=== PATIENT | male | born 1970 | race African-American/Black ===

== ENCOUNTER 2016-11-27 14:58 | Inpatient (IN) | payer OTHER ==
[2016-11-27 16:50] VITALS: BMI 21.6
--- NOTE | 2016-11-27 17:43 | HP ---
CIWA Score - CIWA Score Nausea/Vomitin Muscle Tremors: 3 Anxiety: 2 Agitation: 1-Slight > Activity Paroxysmal Sweats: 3 Orientation: 0-Oriented Tacttile Disturbances: 0-None Auditory Disturbances: 0-None Visual Disturbances: 0-None Headache: 3-Moderate CIWA-Ar Total Score: 17 Admission ROS BHS - HPI Chief Complaint: "I am here to better my life." Pt. is here to Detox from Alcohol. Allergies/Adverse Reactions: Allergies Allergy/AdvReac Type Severity Reaction Status Date / Time No Known Allergies Allergy Verified 11/27/16 16:53 History of Present Illness: Pt. is a 45 YO male here to Detox from Alcohol. This is pt.'s first Detox admission at [facility]. Pt. had 1 previous Detox admission at [facility] in 2016. Exam Limitations: No Limitations - Ebola screening Have you traveled outside of the country in the last 21 days: No Have you had contact with anyone from an Ebola affected area: No Have you been sick,other than usual withdrawal symptoms: No Do you have a fever: No - Review of Systems Constitutional: Chills, Diaphoresis, Fever, Loss of Appetite, Malaise, Night Sweats, Changes in sleep, Unintentional Wgt. Loss (Lost 10 - 15 lbs. over the last 6 months.) EENT: reports: No Symptoms Reported Respiratory: reports: No Symptoms reported Cardiac: reports: Syncope (X 1: approx. 2 weeks ago. Did not go to ER.) GI: reports: Diarrhea, Nausea, Poor Appetite, Vomiting, Indigestion, Abdominal cramping : reports: No Symptoms Reported Musculoskeletal: reports: No Symptoms Reported Integumentary: reports: No Symptoms Reported Neuro: reports: Headache, Tremors Endocrine: reports: No Symptoms Reported Hematology: reports: Anemia (In past. No treatment.) Psychiatric: reports: Judgement Intact, Mood/Affect Appropiate, Orientated x3, Anxious, Depressed (Counseling treatment. No medication. Patient declines Psych Evaluation for this admission.) Other Systems: Reviewed and Negative Patient History - Patient Medical History Hx Anemia: Yes (No treatment.) Hx Asthma: No Hx Chronic Obstructive Pulmonary Disease (COPD): No Hx Cancer: No Hx Cardiac Disorders: No Hx Congestive Heart Failure: No Hx Hypertension: No Hx Hypercholesterolemia: Yes (No previous treatment.) Hx Pacemaker: No HX Cerebrovascular Accident: No Hx Seizures: No Hx Dementia: No Hx Diabetes: No Hx Gastrointestinal Disorders: No Hx Liver Disease: No Hx Genitourinary Disorders: No Hx Sexually Transmitted Disorders: No Hx Renal Disease (ESRD): No Hx Thyroid Disease: No Hx Human Immunodeficiency Virus (HIV): No (Last tested: 08/2016: NEGATIVE.) Hx Hepatitis C: No (Never Tested.) Hx Depression: Yes (No Treatment.) Hx Suicide Attempt: No (PATIENT DENIES CURRENT SI / HI.) Hx Bipolar Disorder: No Hx Schizophrenia: No Other Medical History: DENIES. - Patient Surgical History Past Surgical History: No Hx Neurologic Surgery: No Hx Cataract Extraction: No Hx Cardiac Surgery: No Hx Lung Surgery: No Hx Breast Surgery: No Hx Breast Biopsy: No Hx Abdominal Surgery: Yes (Surgical repair of Hernia during childhood.) Hx Appendectomy: No Hx Cholecystectomy: No Hx Genitourinary Surgery: No Hx Section: No Hx Orthopedic Surgery: No Anesthesia Reaction: No - PPD History Previous Implant?: Yes Documented Results: Negative w/o proof Implanted On Prior R Admission?: No PPD to be Administered?: Yes - Reproductive History Patient is a Female of Child Bearing Age (11 -55 yrs old): No (PATIENT IS MALE.) - Smoking Cessation Smoking history: Current every day smoker Have you smoked in the past 12 months: Yes Aproximately how many cigarettes per day: 20 Cigars Per Day: 0 Hx Chewing Tobacco Use: No Initiated information on smoking cessation: No 'Breaking Loose' booklet given: 11/27/16 (GIVEN ON UNIT.) - Substance & Tx. History Hx Alcohol Use: Yes Hx Substance Use: Yes Substance Use Type: Alcohol Hx Substance Use Treatment: Yes (1 Previous Detox admission at [facility] (2016 ).) - Substances Abused Alcohol-beer Route: Oral Frequency: Daily Amount used: 2-6 pks. Age of first use: 15 Date of Last Use: 11/27/16 Marijuana/Hashish Route: Smoking Frequency: 1-3 times last 30 days Amount used: 1 Joint. Age of first use: 15 Date of Last Use: 11/13/16 Family Disease History - Family Disease History Family Disease History: Respiratory: Mother (Bronchitis, Emphysema, Arthritis, .), Other: Father (.) Admission Physical Exam S - Vital Signs Vital Signs: Vital Signs - 24 hr 11/27/16 16:45 Temperature 97.5 F L Pulse Rate 70 Respiratory 18 Rate Blood Pressure 126/71 - Physical General Appearance: Yes: No Apparent Distress, Nourished, Appropriately Dressed , Tremorous HEENTM: Yes: Hearing grossly Normal, Normocephalic, Normal Voice, RAZIA, Pharynx Normal Respiratory: Yes: Chest Non-Tender, Lungs Clear, No Respiratory Distress, No Accessory Muscle Use Neck: Yes: No masses,lesions,Nodules, Supple, Trachea in good position Breast: Yes: Breast Exam Deferred Cardiology: Yes: Regular Rhythm, Regular Rate, S1, S2 Abdominal: Yes: Normal Bowel Sounds, Non Tender, Flat, Soft Genitourinary: Yes: Within Normal Limits Back: Yes: Normal Inspection Musculoskeletal: Yes: full range of Motion, Gait Steady Extremities: Yes: Normal Inspection, Normal Range of Motion, Non-Tender, Tremors Neurological: Yes: Fully Oriented, Alert, Normal Mood/Affect, Normal Response Integumentary: Yes: Normal Color, Dry, Warm Lymphatic: Yes: Within Normal Limits - Diagnostic (1) Alcohol dependence with uncomplicated withdrawal Current Visit: Yes Status: Acute (2) Nicotine dependence Current Visit: Yes Status: Chronic Qualifiers: Nicotine product type: cigarettes Substance use status: uncomplicated Qualified Code(s): F17.210 - Nicotine dependence, cigarettes, uncomplicated (3) History of anemia Current Visit: Yes Status: Chronic (4) Hypercholesterolemia Current Visit: Yes Status: Suspected (5) Cannabis dependence, uncomplicated Current Visit: Yes Status: Acute Cleared for Admission [facility] - Detox or Rehab [facility] Level of Care: Medically Managed Detox Regimen/Protocol: Librium [facility] Breath Alcohol Content Breath Alcohol Content: 0.040 Urine Drug Screen - Results Drug Screen Negative: No Urine Drug Screen Results: THC-Marijuana
[2016-11-27] MEDS ORDERED: chlordiazePOXIDE HCL 25 MG CAPSULE PO PRN (18:19)
[2016-11-27] MEDS ORDERED: MENTHOL/PHENOL 1 EACH UD MM PRN (18:19)
[2016-11-27] MEDS ORDERED: ACETAMINOPHEN 325 MG TABLET (FP) PO PRN (18:19)
[2016-11-27] MEDS ORDERED: MAGNESIUM CITRATE 300 ML BOTTLE PO PRN (18:19)
[2016-11-27] MEDS ORDERED: diphenhydrAMINE HCL 50 MG CAPSULE PO PRN (18:19)
[2016-11-27] MEDS ORDERED: LOPERAMIDE HCL 2 MG CAPSULE PO PRN (18:19)
[2016-11-27] MEDS ORDERED: NICOTINE POLACRILEX 2 MG GUM BC PRN (18:19)
[2016-11-27] MEDS ORDERED: P-EPHED 60MG/TRIPROLIDI 2.5MG TABLET PO PRN (18:19)
[2016-11-27] MEDS ORDERED: MAGNESIUM HYDROX 2400MG/30ML ORAL SUSPENSION 30 ML CUP PO PRN (18:19)
[2016-11-27] MEDS ORDERED: guaiFENesin/D-METHORPHAN HB 10 ML UNIT-DOSE CUPS PO PRN (18:19)
[2016-11-27] MEDS ORDERED: MAG HYDROX/AL HYDROX/SIMETH 30 ML UNIT-DOSE CUP PO PRN (18:19)
[2016-11-27] MEDS ORDERED: IBUPROFEN 400 MG TABLET (FP) PO PRN (18:19)
[2016-11-27] MEDS ORDERED: hydrOXYzine PAMOATE 50 MG CAPSULE (FP) PO PRN (18:19)
[2016-11-27] MEDS ORDERED: chlordiazePOXIDE HCL 25 MG CAPSULE PO ONE (19:00)
[2016-11-27] MEDS: NICOTINE 21 MG/24 HOURS TOPICAL PATCH TD SCH (19:51)
[2016-11-27] MEDS: chlordiazePOXIDE HCL 25 MG CAPSULE PO SCH (22:28)
[2016-11-27] MEDS: THIAMINE HCL 100 MG TABLET (FP) PO SCH (22:28)
[2016-11-28 00:35] LABS: URINE APPEARANCE SLCLOUDY; URINE BILIRUBIN NEGATIVE (NEGATIVE); URINE BLOOD NEGATIVE (NEGATIVE); URINE COLOR YELLOW; URINE GLUCOSE (UA) NEGATIVE (NEGATIVE); URINE KETONE NEGATIVE (NEGATIVE); URINE LEUK ESTERASE TRACE (NEGATIVE); URINE NITRITE NEGATIVE (NEGATIVE); URINE PROTEIN NEGATIVE (NEGATIVE); URINE UROBILINOGEN NEGATIVE mg/dL (0.2-1.0)
[2016-11-28 00:58] LABS: CALCIUM OXALATE CRYSTALS FEW /hpf (NONE SEEN); URINE MUCUS FEW; URINE RBC 1 /hpf (0-3); URINE WBC 10 /hpf (3-5)
[2016-11-28] MEDS: chlordiazePOXIDE HCL 25 MG CAPSULE PO SCH ×4 (05:13→22:33)
--- NOTE | 2016-11-28 09:22 | EKG ---
Test Reason : Blood Pressure : / mmHG Vent. Rate : 056 BPM Atrial Rate : 056 BPM P-R Int : 160 ms QRS Dur : 104 ms QT Int : 410 ms P-R-T Axes : 031 077 065 degrees QTc Int : 395 ms SINUS BRADYCARDIA INCOMPLETE RIGHT BUNDLE BRANCH BLOCK NO PREVIOUS ECGS AVAILABLE Confirmed by PRADEEP CHRISTIAN MD ([id number]) on 11/28/2016 9:21:53 AM Referred By: Confirmed By:PRADEEP CHRISTIAN MD
[2016-11-28 10:19] LABS: MCH 31.5 pg (25.7-33.7); MCHC 33.5 g/dl (32.0-35.9); MEAN CELL VOLUME 94.1 fl (80-96); MEAN PLT VOLUME 8.7 fl (7.5-11.1); PLATELET COUNT 237 K/MM3 (134-434); RDW 14.5 % (11.9-15.9); WHITE BLOOD COUNT 6.6 K/mm3 (4.0-10.0)
[2016-11-28] MEDS: PRENATAL VITAMINS W/ FOLIC ACID TABLET (FP) PO SCH (10:32)
[2016-11-28] MEDS: NICOTINE 21 MG/24 HOURS TOPICAL PATCH TD SCH (10:33)
[2016-11-28 10:51] LABS: ALBUMIN 3.4 g/dl (3.4-5.0); ALK PHOS 69 U/L (45-117); ANION GAP 6 (8-16); BILIRUBIN,TOTAL 0.6 mg/dL (0.2-1.0); CALCIUM 8.8 mg/dL (8.5-10.1); CO2 30 mmol/L (21-32); GLUCOSE,RANDOM 82 mg/dL (74-106); SGOT/AST 10 U/L (15-37); SGPT/ALT 20 U/L (12-78); TOT PROT 6.5 g/dl (6.4-8.2)
--- NOTE | 2016-11-28 11:10 | PN ---
S CIWA - CIWA Score Nausea/Vomitin Muscle Tremors: 4-Moderate,w/Arms Extend Anxiety: 3 Agitation: 3 Paroxysmal Sweats: 3 Orientation: 0-Oriented Tacttile Disturbances: 1-Very Mild Itch/Numbness Auditory Disturbances: 0-None Visual Disturbances: 0-None Headache: 1-Very Mild CIWA-Ar Total Score: 18 BHS Progress Note (SOAP) Subjective: nausea, sweats, interrupted sleep, anxiety, tremors Objective: 11/28/16 11:09 Vital Signs - 8 hr 11/28/16 11/28/16 11/28/16 03:59 06:35 09:41 Temperature 97.1 F L 96.8 F L Pulse Rate 61 68 Respiratory 18 18 18 Rate Blood Pressure 131/80 121/69 Laboratory Tests 11/28/16 11/28/16 11/28/16 00:01 07:00 07:00 WBC 6.6 RBC 4.71 Hgb 14.8 Hct 44.3 MCV 94.1 MCH 31.5 MCHC 33.5 RDW 14.5 Plt Count 237 MPV 8.7 Sodium 143 Potassium 4.1 Chloride 107 Carbon Dioxide 30 Anion Gap 6 L BUN 11 Creatinine 1.0 Creat Clearance w eGFR > 60 Random Glucose 82 Calcium 8.8 Total Bilirubin 0.6 AST 10 L ALT 20 Alkaline Phosphatase 69 Total Protein 6.5 Albumin 3.4 Urine Color Yellow Urine Appearance Slcloudy Urine pH 5.0 Ur Specific [place] 1.020 Urine Protein Negative Urine Glucose (UA) Negative Urine Ketones Negative Urine Blood Negative Urine Nitrite Negative Urine Bilirubin Negative Urine Urobilinogen Negative Ur Leukocyte Esterase Trace Urine RBC 1 Urine WBC 10 Ur Epithelial Cells Rare Calcium Oxalate Crystal Few Urine Mucus Few Assessment: 11/28/16 11:09 withdrawal sx Plan: cont detox, fluids, encourage ambulation
[2016-11-28 12:18] LABS: HIV 1 & 2 AB NEGATIVE; HIV 1 AGp24 NEGATIVE
[2016-11-28 12:45] LABS: SICKLE CELL SCREEN NEGATIVE (NEGATIVE)
[2016-11-28] MEDS: THIAMINE HCL 100 MG TABLET (FP) PO SCH (22:33)
[2016-11-29] MEDS: chlordiazePOXIDE HCL 25 MG CAPSULE PO SCH ×3 (05:19→17:15)
[2016-11-29] MEDS: PRENATAL VITAMINS W/ FOLIC ACID TABLET (FP) PO SCH (10:35)
[2016-11-29] MEDS: NICOTINE 21 MG/24 HOURS TOPICAL PATCH TD SCH (10:36)
--- NOTE | 2016-11-29 15:25 | PN ---
[facility] CIWA - CIWA Score Nausea/Vomitin-Mild Nausea/No Vomiting Muscle Tremors: 3 Anxiety: 4-Mod. Anxious/Guarded Agitation: 1-Slight > Activity Paroxysmal Sweats: 1-Minimal Palms Moist Orientation: 0-Oriented Tacttile Disturbances: 2-Mild Itch/Numbness/Burn Auditory Disturbances: 0-None Visual Disturbances: 3-Moderate Sensitivity Headache: 0-None Present CIWA-Ar Total Score: 15 S Progress Note (SOAP) Subjective: Anxious, Tremors, Fatigue. Objective: PT. A & O X 3, OBSERVED AMBULATING ON UNIT. NO ACUTE DISTRESS. 11/29/16 15:19 Vital Signs Temperature 98.1 F 11/29/16 14:18 Pulse Rate 86 11/29/16 14:18 Respiratory Rate 20 11/29/16 14:18 Blood Pressure 103/69 11/29/16 14:18 O2 Sat by Pulse Oximetry (%) Laboratory Tests 11/27/16 11/28/16 11/28/16 07:00 00:01 07:00 WBC 6.6 RBC 4.71 Hgb 14.8 Hct 44.3 MCV 94.1 MCH 31.5 MCHC 33.5 RDW 14.5 Plt Count 237 MPV 8.7 Sickle Cell Screen Negative Sodium Potassium Chloride Carbon Dioxide Anion Gap BUN Creatinine Creat Clearance w eGFR Random Glucose Calcium Total Bilirubin AST ALT Alkaline Phosphatase Total Protein Albumin Urine Color Yellow Urine Appearance Slcloudy Urine pH 5.0 Ur Specific [place] 1.020 Urine Protein Negative Urine Glucose (UA) Negative Urine Ketones Negative Urine Blood Negative Urine Nitrite Negative Urine Bilirubin Negative Urine Urobilinogen Negative Ur Leukocyte Esterase Trace Urine RBC 1 Urine WBC 10 Ur Epithelial Cells Rare Calcium Oxalate Crystal Few Urine Mucus Few RPR Titer Hepatitis C Antibody <0.1 HIV 1&2 Antibody Screen HIV P24 Antigen 11/28/16 11/28/16 11/28/16 07:00 07:00 09:00 WBC RBC Hgb Hct MCV MCH MCHC RDW Plt Count MPV Sickle Cell Screen Sodium 143 Potassium 4.1 Chloride 107 Carbon Dioxide 30 Anion Gap 6 L BUN 11 Creatinine 1.0 Creat Clearance w eGFR > 60 Random Glucose 82 Calcium 8.8 Total Bilirubin 0.6 AST 10 L ALT 20 Alkaline Phosphatase 69 Total Protein 6.5 Albumin 3.4 Urine Color Urine Appearance Urine pH Ur Specific [place] Urine Protein Urine Glucose (UA) Urine Ketones Urine Blood Urine Nitrite Urine Bilirubin Urine Urobilinogen Ur Leukocyte Esterase Urine RBC Urine WBC Ur Epithelial Cells Calcium Oxalate Crystal Urine Mucus RPR Titer Nonreactive Hepatitis C Antibody HIV 1&2 Antibody Screen Negative HIV P24 Antigen Negative LABS NOTED. Assessment: 11/29/16 15:20 WITHDRAWAL SYMPTOMS. 11/29/16 15:44 Plan: CONTINUE DETOX. REPEAT UA FOR ADMISSION ABNORMAL VALUES.
[2016-11-29] MEDS: THIAMINE HCL 100 MG TABLET (FP) PO SCH (22:42)
[2016-11-29] MEDS: chlordiazePOXIDE 5 MG CAPSULE PO SCH (22:42)
[2016-11-29 23:31] LABS: URINE APPEARANCE CLEAR; URINE BILIRUBIN NEGATIVE (NEGATIVE); URINE BLOOD NEGATIVE (NEGATIVE); URINE COLOR LTYELLOW; URINE GLUCOSE (UA) NEGATIVE (NEGATIVE); URINE KETONE NEGATIVE (NEGATIVE); URINE LEUK ESTERASE NEGATIVE (NEGATIVE); URINE NITRITE NEGATIVE (NEGATIVE); URINE PROTEIN NEGATIVE (NEGATIVE); URINE UROBILINOGEN NEGATIVE mg/dL (0.2-1.0)
[2016-11-30] MEDS: chlordiazePOXIDE 5 MG CAPSULE PO SCH ×3 (05:11→17:26)
[2016-11-30] MEDS: PRENATAL VITAMINS W/ FOLIC ACID TABLET (FP) PO SCH (10:35)
[2016-11-30] MEDS: NICOTINE 21 MG/24 HOURS TOPICAL PATCH TD SCH (10:35)
--- NOTE | 2016-11-30 14:57 | PN ---
S Progress Note (SOAP) Subjective: Fatigue, Anxious. Objective: PT. A & O X 2 (DISORIENTED ABOUT DAY /DATE). NO ACUTE DISTRESS. 11/30/16 14:52 Vital Signs Temperature 97.3 F L 11/30/16 14:28 Pulse Rate 74 11/30/16 14:28 Respiratory Rate 18 11/30/16 14:28 Blood Pressure 132/85 11/30/16 14:28 O2 Sat by Pulse Oximetry (%) Laboratory Tests 11/27/16 11/28/16 11/28/16 07:00 00:01 07:00 WBC 6.6 RBC 4.71 Hgb 14.8 Hct 44.3 MCV 94.1 MCH 31.5 MCHC 33.5 RDW 14.5 Plt Count 237 MPV 8.7 Sickle Cell Screen Negative Sodium Potassium Chloride Carbon Dioxide Anion Gap BUN Creatinine Creat Clearance w eGFR Random Glucose Calcium Total Bilirubin AST ALT Alkaline Phosphatase Total Protein Albumin Urine Color Yellow Urine Appearance Slcloudy Urine pH 5.0 Ur Specific [place] 1.020 Urine Protein Negative Urine Glucose (UA) Negative Urine Ketones Negative Urine Blood Negative Urine Nitrite Negative Urine Bilirubin Negative Urine Urobilinogen Negative Ur Leukocyte Esterase Trace Urine RBC 1 Urine WBC 10 Ur Epithelial Cells Rare Calcium Oxalate Crystal Few Urine Mucus Few RPR Titer Hepatitis C Antibody <0.1 HIV 1&2 Antibody Screen HIV P24 Antigen 11/28/16 11/28/16 11/28/16 07:00 07:00 09:00 WBC RBC Hgb Hct MCV MCH MCHC RDW Plt Count MPV Sickle Cell Screen Sodium 143 Potassium 4.1 Chloride 107 Carbon Dioxide 30 Anion Gap 6 L BUN 11 Creatinine 1.0 Creat Clearance w eGFR > 60 Random Glucose 82 Calcium 8.8 Total Bilirubin 0.6 AST 10 L ALT 20 Alkaline Phosphatase 69 Total Protein 6.5 Albumin 3.4 Urine Color Urine Appearance Urine pH Ur Specific [place] Urine Protein Urine Glucose (UA) Urine Ketones Urine Blood Urine Nitrite Urine Bilirubin Urine Urobilinogen Ur Leukocyte Esterase Urine RBC Urine WBC Ur Epithelial Cells Calcium Oxalate Crystal Urine Mucus RPR Titer Nonreactive Hepatitis C Antibody HIV 1&2 Antibody Screen Negative HIV P24 Antigen Negative 11/29/16 22:50 WBC RBC Hgb Hct MCV MCH MCHC RDW Plt Count MPV Sickle Cell Screen Sodium Potassium Chloride Carbon Dioxide Anion Gap BUN Creatinine Creat Clearance w eGFR Random Glucose Calcium Total Bilirubin AST ALT Alkaline Phosphatase Total Protein Albumin Urine Color Ltyellow Urine Appearance Clear Urine pH 6.0 Ur Specific [place] 1.015 Urine Protein Negative Urine Glucose (UA) Negative Urine Ketones Negative Urine Blood Negative Urine Nitrite Negative Urine Bilirubin Negative Urine Urobilinogen Negative Ur Leukocyte Esterase Negative Urine RBC Urine WBC Ur Epithelial Cells Calcium Oxalate Crystal Urine Mucus RPR Titer Hepatitis C Antibody HIV 1&2 Antibody Screen HIV P24 Antigen LABS NOTED. Assessment: 11/30/16 14:55 WITHDRAWAL SYMPTOMS. Plan: CONTINUE DETOX.
[2016-11-30] MEDS: THIAMINE HCL 100 MG TABLET (FP) PO SCH (22:25)
[2016-11-30] MEDS: chlordiazePOXIDE HCL 10 MG CAPSULE PO SCH (22:25)
[2016-12-01] MEDS: chlordiazePOXIDE HCL 10 MG CAPSULE PO SCH (05:43)
[2016-12-01 06:19] VITALS: BP 122/76; PULSE 65; TEMP 97.6
--- NOTE | 2016-12-01 17:44 | DS ---
[facility] Detox Discharge Summary Admission Date: 11/27/16 Discharge Date: 12/01/16 - History Present History: Alcohol Dependence, Cannabis Dependence Additional Comments: PATIENT GOING HOME AND WILL RETURN TO WORK. PATIENT ADVISED TO CONSIDER LOCAL 12 -STEP / NA / AA OUTPATIENT SUPPORT GROUPS FOR AFTERCARE. PATIENT WAS DISCHARGED FROM DETOX UNIT IN STABLE MEDICAL CONDITION. Pertinent Past History: History of Anemia, Hypercholesterolemia. - Physical Exam Results Vital Signs: Vital Signs Temperature 97.6 F 12/01/16 06:19 Pulse Rate 65 12/01/16 06:19 Respiratory Rate 18 12/01/16 06:19 Blood Pressure 122/76 12/01/16 06:19 O2 Sat by Pulse Oximetry (%) Pertinent Admission Physical Exam Findings: WITHDRAWAL SYMPTOMS. Laboratory Tests 11/27/16 11/28/16 11/28/16 07:00 00:01 07:00 WBC 6.6 RBC 4.71 Hgb 14.8 Hct 44.3 MCV 94.1 MCH 31.5 MCHC 33.5 RDW 14.5 Plt Count 237 MPV 8.7 Sickle Cell Screen Negative Sodium Potassium Chloride Carbon Dioxide Anion Gap BUN Creatinine Creat Clearance w eGFR Random Glucose Calcium Total Bilirubin AST ALT Alkaline Phosphatase Total Protein Albumin Urine Color Yellow Urine Appearance Slcloudy Urine pH 5.0 Ur Specific [place] 1.020 Urine Protein Negative Urine Glucose (UA) Negative Urine Ketones Negative Urine Blood Negative Urine Nitrite Negative Urine Bilirubin Negative Urine Urobilinogen Negative Ur Leukocyte Esterase Trace Urine RBC 1 Urine WBC 10 Ur Epithelial Cells Rare Calcium Oxalate Crystal Few Urine Mucus Few RPR Titer Hepatitis C Antibody <0.1 HIV 1&2 Antibody Screen HIV P24 Antigen 11/28/16 11/28/16 11/28/16 07:00 07:00 09:00 WBC RBC Hgb Hct MCV MCH MCHC RDW Plt Count MPV Sickle Cell Screen Sodium 143 Potassium 4.1 Chloride 107 Carbon Dioxide 30 Anion Gap 6 L BUN 11 Creatinine 1.0 Creat Clearance w eGFR > 60 Random Glucose 82 Calcium 8.8 Total Bilirubin 0.6 AST 10 L ALT 20 Alkaline Phosphatase 69 Total Protein 6.5 Albumin 3.4 Urine Color Urine Appearance Urine pH Ur Specific [place] Urine Protein Urine Glucose (UA) Urine Ketones Urine Blood Urine Nitrite Urine Bilirubin Urine Urobilinogen Ur Leukocyte Esterase Urine RBC Urine WBC Ur Epithelial Cells Calcium Oxalate Crystal Urine Mucus RPR Titer Nonreactive Hepatitis C Antibody HIV 1&2 Antibody Screen Negative HIV P24 Antigen Negative 11/29/16 22:50 WBC RBC Hgb Hct MCV MCH MCHC RDW Plt Count MPV Sickle Cell Screen Sodium Potassium Chloride Carbon Dioxide Anion Gap BUN Creatinine Creat Clearance w eGFR Random Glucose Calcium Total Bilirubin AST ALT Alkaline Phosphatase Total Protein Albumin Urine Color Ltyellow Urine Appearance Clear Urine pH 6.0 Ur Specific [place] 1.015 Urine Protein Negative Urine Glucose (UA) Negative Urine Ketones Negative Urine Blood Negative Urine Nitrite Negative Urine Bilirubin Negative Urine Urobilinogen Negative Ur Leukocyte Esterase Negative Urine RBC Urine WBC Ur Epithelial Cells Calcium Oxalate Crystal Urine Mucus RPR Titer Hepatitis C Antibody HIV 1&2 Antibody Screen HIV P24 Antigen LABS NOTED. - Treatment Hospital Course: Detox Protocol Followed, Detoxed Safely, Responded well, Discharged Condition Good Patient has Accepted a Rehab Referral to: PT. GOING HOME. ADVISED TO CONSIDER 12 -STEP/NA/AA GROUPS FOR AFTERCARE. - Medication Discharge Medications: Ambulatory Orders NK [No Known Home Medication] 11/27/16 - Diagnosis (1) Alcohol dependence with uncomplicated withdrawal Status: Acute (2) Nicotine dependence Status: Chronic Qualifiers: Nicotine product type: cigarettes Substance use status: uncomplicated Qualified Code(s): F17.210 - Nicotine dependence, cigarettes, uncomplicated (3) History of anemia Status: Chronic (4) Hypercholesterolemia Status: Suspected (5) Cannabis dependence, uncomplicated Status: Acute - AMA Did Patient Leave Against Medical Advice: No
== END 2016-12-01 08:52 | disposition home or self-care (01) | DRG 775 ==
LOC: YASAS 14:58 → Y3N 18:40
PROVIDERS: ADMIT Internal Medicine Addiction Medicine; ATTEND Internal Medicine Addiction Medicine
PROC: HZ2ZZZZ Detoxification Services for Substance Abuse Treatment (ICD-10-PCS; principal; 2016-11-27)
DX: F10.230 Alcohol dependence with withdrawal, uncomplicated (principal); F12.20 Cannabis dependence, uncomplicated; F17.210 Nicotine dependence, cigarettes, uncomplicated; Z86.2 Personal history of diseases of the blood and blood-forming organs and certain disorders involving the immune mechanism
CPT/HCPCS: 36415; 80053; 81003; 81015; 85027; 85660; 86593; 86803; 87389; 93005; 93010

== ENCOUNTER 2017-01-12 13:45 | Inpatient (IN) | payer OTHER ==
[2017-01-12 16:16] VITALS: BMI 21.7
--- NOTE | 2017-01-12 18:55 | HP ---
COWS - Scale Resting Pulse: 0= [place] 80 or Below Sweatin= Chills/Flushing Restless Observation: 3= Extraneous Movement Pupil Size: 0= Normal to Room Light Bone or Joint Aches: 2= Severe Diffuse Aches Runny Nose/ Eye Tearin= Runny Nose/Eyes GI Upset > 30mins: 2= Nausea/Diarrhea Tremor Observation: 2= Slight Tremor Visible Yawning Observation: 0= None Anxiety or Irritability: 2=Irritable/Anxious Goose Flesh Skin: 0=Smooth Skin COWS Score: 14 CIWA Score - CIWA Score Nausea/Vomitin-Mild Nausea/No Vomiting Muscle Tremors: 4-Moderate,w/Arms Extend Anxiety: 4-Mod. Anxious/Guarded Agitation: 4-Moderately Restless Paroxysmal Sweats: 1-Minimal Palms Moist Orientation: 1-Uncertain about Date Tacttile Disturbances: 0-None Auditory Disturbances: 0-None Visual Disturbances: 0-None Headache: 0-None Present CIWA-Ar Total Score: 15 Admission ROS S - HPI Chief Complaint: WITHDRAWAL SX Allergies/Adverse Reactions: Allergies Allergy/AdvReac Type Severity Reaction Status Date / Time No Known Allergies Allergy Verified 01/12/17 17:42 History of Present Illness: 46 YEARS OLD MALE WITH LONG HISTORY OF ALCOHOL OPIATE NICOTINE DEPENDENCE DENIES MEDICAL ISSUE HAS DEPRESSION IS ADMITTED TO DETOX Exam Limitations: No Limitations - Ebola screening Have you traveled outside of the country in the last 21 days: No Have you had contact with anyone from an Ebola affected area: No Have you been sick,other than usual withdrawal symptoms: No Do you have a fever: No - Review of Systems Constitutional: Loss of Appetite, Changes in sleep, Unintentional Wgt. Loss, Unexplained wgt Loss EENT: reports: No Symptoms Reported Respiratory: reports: No Symptoms reported Cardiac: reports: No Symptoms Reported GI: reports: Nausea, Poor Appetite, Poor Fluid Intake, Abdominal cramping : reports: No Symptoms Reported Musculoskeletal: reports: Back Pain, Joint Pain, Muscle Pain, Neck Pain Integumentary: reports: No Symptoms Reported Neuro: reports: Tremors Endocrine: reports: No Symptoms Reported Hematology: reports: No Symptoms Reported Psychiatric: reports: Judgement Intact, Depressed Other Systems: Reviewed and Negative Patient History - Patient Medical History Hx Anemia: Yes (No treatment.) Hx Asthma: No Hx Chronic Obstructive Pulmonary Disease (COPD): No Hx Cancer: No Hx Cardiac Disorders: No Hx Congestive Heart Failure: No Hx Hypertension: No Hx Hypercholesterolemia: Yes (No treatment.) Hx Pacemaker: No HX Cerebrovascular Accident: No Hx Seizures: No Hx Dementia: No Hx Diabetes: No Hx Gastrointestinal Disorders: No Hx Liver Disease: No Hx Genitourinary Disorders: No Hx Sexually Transmitted Disorders: No Hx Renal Disease (ESRD): No Hx Thyroid Disease: No Hx Human Immunodeficiency Virus (HIV): No (Last tested: 08/2016: NEGATIVE.) Hx Hepatitis C: No (Never Tested.) Hx Depression: Yes Hx Suicide Attempt: No Hx Bipolar Disorder: No Hx Schizophrenia: No - Patient Surgical History Past Surgical History: Yes Hx Neurologic Surgery: No Hx Cataract Extraction: No Hx Cardiac Surgery: No Hx Lung Surgery: No Hx Breast Surgery: No Hx Breast Biopsy: No Hx Abdominal Surgery: Yes (Surgical repair of Hernia during childhood.) Hx Appendectomy: No Hx Cholecystectomy: No Hx Genitourinary Surgery: No Hx Orthopedic Surgery: No Anesthesia Reaction: No - PPD History Previous Implant?: Yes Documented Results: Negative w/proof Implanted On Prior [facility] Admission?: Yes Date: 11/29/16 Results: 0 mm PPD to be Administered?: No - Smoking Cessation Smoking history: Current every day smoker Have you smoked in the past 12 months: Yes Aproximately how many cigarettes per day: 20 Cigars Per Day: 0 Hx Chewing Tobacco Use: No Initiated information on smoking cessation: Yes 'Breaking Loose' booklet given: 01/12/17 - Substance & Tx. History Hx Alcohol Use: Yes Hx Substance Use: Yes Substance Use Type: Alcohol, Cocaine, Heroin Hx Substance Use Treatment: Yes (11/27-12/01/16) - Substances Abused Heroin Route: Inhalation Frequency: Daily Amount used: 3 bags Age of first use: 45 Date of Last Use: 01/10/17 Alcohol Route: Oral Frequency: Daily Amount used: 1/2 pint vodka Age of first use: 15 Date of Last Use: 01/10/17 Family Disease History - Family Disease History Family History: Unremarkable Family Disease History: Respiratory: Mother (Bronchitis, Emphysema, Arthritis, .), Other: Father (.), Mother Admission Physical Exam BHS - Vital Signs Vital Signs: Vital Signs - 24 hr 01/12/17 16:08 Temperature 97.5 F L Pulse Rate 74 Respiratory 20 Rate Blood Pressure 108/65 - Physical General Appearance: Yes: Appropriately Dressed, Mild Distress, Tremorous, Irritable, Sweating, Anxious HEENTM: Yes: Hearing grossly Normal, Normal ENT Inspection, Normocephalic, Normal Voice Respiratory: Yes: Chest Non-Tender, Lungs Clear, Normal Breath Sounds, No Respiratory Distress, No Accessory Muscle Use Neck: Yes: Supple, Trachea in good position Breast: Yes: Breasts Symetrical Cardiology: Yes: Regular Rhythm, Regular Rate, S1, S2 Abdominal: Yes: Non Tender, Soft, Increased Bowel Sounds Genitourinary: Yes: Within Normal Limits Back: Yes: Normal Inspection Musculoskeletal: Yes: full range of Motion, Gait Steady, Back pain, Muscle Pain Extremities: Yes: Normal Inspection, Normal Range of Motion, Non-Tender, Tremors Neurological: Yes: Alert, Motor Strength 5/5, Normal Response, Depressed Affect Integumentary: Yes: Warm Lymphatic: Yes: Within Normal Limits - Diagnostic (1) Alcohol dependence with uncomplicated withdrawal Current Visit: Yes Status: Acute (2) Nicotine dependence Current Visit: Yes Status: Acute Qualifiers: Nicotine product type: cigarettes Substance use status: in withdrawal Qualified Code(s): F17.213 - Nicotine dependence, cigarettes, with withdrawal; F17.213 - Nicotine dependence, cigarettes, with withdrawal (3) Opioid dependence with withdrawal Current Visit: Yes Status: Acute (4) Weight loss Current Visit: Yes Status: Acute (5) Depression (emotion) Current Visit: Yes Status: Suspected Qualifiers: Depression Type: dysthymia Qualified Code(s): F34.1 - Dysthymic disorder; F34.1 - Dysthymic disorder; F34.1 - Dysthymic disorder Cleared for Admission [facility] - Detox or Rehab [facility] Level of Care: Medically Managed Detox Regimen/Protocol: Methadone/Librium [facility] Breath Alcohol Content Breath Alcohol Content: 0 Urine Pregancy Test - Result Urine Test Results: Negative- NO Line Present Urine Drug Screen - Results Drug Screen Negative: No Urine Drug Screen Results: KRYS-Cocaine, OPI-Opiates
[2017-01-12] MEDS ORDERED: IBUPROFEN 400 MG TABLET (FP) PO PRN (18:59)
[2017-01-12] MEDS ORDERED: NICOTINE POLACRILEX 4 MG GUM BUC PRN (18:59)
[2017-01-12] MEDS ORDERED: MAGNESIUM CITRATE 300 ML BOTTLE PO PRN (18:59)
[2017-01-12] MEDS ORDERED: METHADONE HCL 10 MG TABLET (FOR DETOX USE ONLY) PO ONE ×2 (18:59→23:00)
[2017-01-12] MEDS ORDERED: MENTHOL/PHENOL 1 EACH UD MM PRN (18:59)
[2017-01-12] MEDS ORDERED: ACETAMINOPHEN 325 MG TABLET (FP) PO PRN (18:59)
[2017-01-12] MEDS ORDERED: guaiFENesin/D-METHORPHAN HB 10 ML UNIT-DOSE CUPS PO PRN (18:59)
[2017-01-12] MEDS ORDERED: MAG HYDROX/AL HYDROX/SIMETH 30 ML UNIT-DOSE CUP PO PRN (18:59)
[2017-01-12] MEDS ORDERED: P-EPHED 60MG/TRIPROLIDI 2.5MG TABLET PO PRN (18:59)
[2017-01-12] MEDS ORDERED: LOPERAMIDE HCL 2 MG CAPSULE PO PRN (18:59)
[2017-01-12] MEDS ORDERED: MAGNESIUM HYDROX 2400MG/30ML ORAL SUSPENSION 30 ML CUP PO PRN (18:59)
[2017-01-12] MEDS: chlordiazePOXIDE HCL 25 MG CAPSULE PO PRN (20:32)
[2017-01-12] MEDS: chlordiazePOXIDE HCL 25 MG CAPSULE PO SCH (22:22)
[2017-01-12] MEDS: THIAMINE HCL 100 MG TABLET (FP) PO SCH (22:23)
[2017-01-12] MEDS: diphenhydrAMINE HCL 50 MG CAPSULE PO PRN (22:23)
[2017-01-13 01:02] LABS: URINE APPEARANCE SLCLOUDY; URINE BILIRUBIN NEGATIVE (NEGATIVE); URINE BLOOD NEGATIVE (NEGATIVE); URINE COLOR YELLOW; URINE GLUCOSE (UA) NEGATIVE (NEGATIVE); URINE KETONE NEGATIVE (NEGATIVE); URINE NITRITE NEGATIVE (NEGATIVE); URINE PROTEIN NEGATIVE (NEGATIVE); URINE UROBILINOGEN NEGATIVE mg/dL (0.2-1.0)
[2017-01-13] MEDS: chlordiazePOXIDE HCL 25 MG CAPSULE PO SCH ×4 (06:00→22:29)
[2017-01-13 09:51] LABS: MCH 30.3 pg (25.7-33.7); MCHC 32.6 g/dl (32.0-35.9); MEAN PLT VOLUME 8.3 fl (7.5-11.1); PLATELET COUNT 240 K/MM3 (134-434); RDW 13.7 % (11.9-15.9); WHITE BLOOD COUNT 7.8 K/mm3 (4.0-10.0)
[2017-01-13] MEDS ORDERED: METHADONE HCL 10 MG TABLET (FOR DETOX USE ONLY) PO SCH (10:00)
[2017-01-13 10:13] LABS: URINE LEUK ESTERASE Negative (NEGATIVE)
[2017-01-13] MEDS: PRENATAL VITAMINS W/ FOLIC ACID TABLET (FP) PO SCH (10:32)
[2017-01-13] MEDS: NICOTINE 21 MG/24 HOURS TOPICAL PATCH TD SCH (10:32)
[2017-01-13 10:41] LABS: ALK PHOS 65 U/L (45-117); ANION GAP 6 (8-16); BILIRUBIN,TOTAL 0.4 mg/dL (0.2-1.0); CALCIUM 8.5 mg/dL (8.5-10.1); CO2 30 mmol/L (21-32); GLUCOSE,RANDOM 87 mg/dL (74-106); SGOT/AST 7 U/L (15-37); SGPT/ALT 18 U/L (12-78); TOT PROT 6.2 g/dl (6.4-8.2)
--- NOTE | 2017-01-13 11:29 | PN ---
[facility] CIWA - CIWA Score Nausea/Vomitin Muscle Tremors: 3 Anxiety: 3 Agitation: 3 Paroxysmal Sweats: 1-Minimal Palms Moist Orientation: 0-Oriented Tacttile Disturbances: 1-Very Mild Itch/Numbness Auditory Disturbances: 1-Very Mild Visual Disturbances: 0-None Headache: 2-Mild CIWA-Ar Total Score: 17 BHS COWS - Scale Resting Pulse: 0= [place] 80 or Below Sweatin= Chills/Flushing Restless Observation: 3= Extraneous Movement Pupil Size: 1= Pupils >than Normal Bone or Joint Aches: 2= Severe Diffuse Aches Runny Nose/ Eye Tearin= Runny Nose/Eyes GI Upset > 30mins: 2= Nausea/Diarrhea Tremor Observation of Outstretched Hands: 2= Slight Tremor Visible Yawning Observation: 1= 1-2x During Session Anxiety or Irritability: 2=Irritable/Anxious Goose Flesh Skin: 0=Smooth Skin COWS Score: 16 S Progress Note (SOAP) Subjective: alert,irritable,anxious,interrupted sleep,tremor,pain in the body and back Objective: 01/13/17 11:27 Vital Signs Temperature 97.6 F 01/13/17 10:00 Pulse Rate 69 01/13/17 10:00 Respiratory Rate 18 01/13/17 10:00 Blood Pressure 111/73 01/13/17 10:00 O2 Sat by Pulse Oximetry (%) ekg nsr,normal ecg Laboratory Last Values WBC 7.8 K/mm3 (4.0-10.0) 01/13/17 07:00 RBC 4.46 M/mm3 (4.00-5.60) 01/13/17 07:00 Hgb 13.5 GM/dL (11.7-16.9) 01/13/17 07:00 Hct 41.5 % (35.4-49) 01/13/17 07:00 MCV 93.0 fl (80-96) 01/13/17 07:00 MCH 30.3 pg (25.7-33.7) 01/13/17 07:00 MCHC 32.6 g/dl (32.0-35.9) 01/13/17 07:00 RDW 13.7 % (11.9-15.9) 01/13/17 07:00 Plt Count 240 K/MM3 (134-434) 01/13/17 07:00 MPV 8.3 fl (7.5-11.1) 01/13/17 07:00 Urine Color Yellow 01/12/17 22:21 Urine Appearance Slcloudy 01/12/17 22:21 Urine pH 5.0 (5.0-8.0) 01/12/17 22:21 Ur Specific [place] 1.025 (1.005-1.025) 01/12/17 22:21 Urine Protein Negative (NEGATIVE) 01/12/17 22:21 Urine Glucose (UA) Negative (NEGATIVE) 01/12/17 22:21 Urine Ketones Negative (NEGATIVE) 01/12/17 22:21 Urine Blood Negative (NEGATIVE) 01/12/17 22:21 Urine Nitrite Negative (NEGATIVE) 01/12/17 22:21 Urine Bilirubin Negative (NEGATIVE) 01/12/17 22:21 Urine Urobilinogen Negative mg/dL (0.2-1.0) 01/12/17 22:21 Ur Leukocyte Esterase Negative (NEGATIVE) 01/12/17 22:21 RPR Titer Nonreactive (NONREACTIVE) 01/13/17 07:00 labs pending Assessment: 01/13/17 11:29 withdrawal symptom Plan: continue detox
--- NOTE | 2017-01-13 11:57 | CONSULT ---
[facility] Psychiatric Consult - Data Date of interview: 01/13/17 Admission source: [facility] Identifying data: Approached for psychiatric interview.Patient declines.Politely." Never mind.I have my own psychiatrist.Thank you."
[2017-01-13] MEDS ORDERED: FLU VACCINE QUAD 60 MCG/0.5 ML (MDV 17-18) IM ONE ×2 (12:00)
[2017-01-13] MEDS: chlordiazePOXIDE HCL 25 MG CAPSULE PO PRN (12:55)
[2017-01-13 13:57] LABS: HIV 1 & 2 AB NEGATIVE; HIV 1 AGp24 NEGATIVE
[2017-01-13] MEDS: diphenhydrAMINE HCL 50 MG CAPSULE PO PRN (22:29)
[2017-01-13] MEDS: THIAMINE HCL 100 MG TABLET (FP) PO SCH (22:29)
[2017-01-14] MEDS: chlordiazePOXIDE HCL 25 MG CAPSULE PO SCH ×3 (05:32→17:24)
[2017-01-14] MEDS: METHADONE HCL 5 MG TABLET (FOR DETOX USE ONLY) PO SCH (10:52)
[2017-01-14] MEDS: PRENATAL VITAMINS W/ FOLIC ACID TABLET (FP) PO SCH (10:52)
[2017-01-14] MEDS: NICOTINE 21 MG/24 HOURS TOPICAL PATCH TD SCH (10:52)
--- NOTE | 2017-01-14 12:04 | PN ---
[facility] CIWA - CIWA Score Nausea/Vomitin Muscle Tremors: 3 Anxiety: 3 Agitation: 2 Paroxysmal Sweats: 1-Minimal Palms Moist Orientation: 0-Oriented Tacttile Disturbances: 1-Very Mild Itch/Numbness Auditory Disturbances: 1-Very Mild Visual Disturbances: 0-None Headache: 2-Mild CIWA-Ar Total Score: 16 BHS COWS - Scale Resting Pulse: 0= [place] 80 or Below Sweatin= Chills/Flushing Restless Observation: 3= Extraneous Movement Pupil Size: 1= Pupils >than Normal Bone or Joint Aches: 2= Severe Diffuse Aches Runny Nose/ Eye Tearin= Nasal Congestion GI Upset > 30mins: 2= Nausea/Diarrhea Tremor Observation of Outstretched Hands: 2= Slight Tremor Visible Yawning Observation: 1= 1-2x During Session Anxiety or Irritability: 2=Irritable/Anxious Goose Flesh Skin: 0=Smooth Skin COWS Score: 15 BHS Progress Note (SOAP) Subjective: alert,irritable,anxious,interrupted sleep,pain in the body and back Objective: 01/14/17 12:02 Vital Signs Temperature 98.8 F 01/14/17 10:00 Pulse Rate 80 01/14/17 10:00 Respiratory Rate 16 01/14/17 10:00 Blood Pressure 148/101 01/14/17 10:00 O2 Sat by Pulse Oximetry (%) Laboratory Last Values WBC 7.8 K/mm3 (4.0-10.0) 01/13/17 07:00 RBC 4.46 M/mm3 (4.00-5.60) 01/13/17 07:00 Hgb 13.5 GM/dL (11.7-16.9) 01/13/17 07:00 Hct 41.5 % (35.4-49) 01/13/17 07:00 MCV 93.0 fl (80-96) 01/13/17 07:00 MCH 30.3 pg (25.7-33.7) 01/13/17 07:00 MCHC 32.6 g/dl (32.0-35.9) 01/13/17 07:00 RDW 13.7 % (11.9-15.9) 01/13/17 07:00 Plt Count 240 K/MM3 (134-434) 01/13/17 07:00 MPV 8.3 fl (7.5-11.1) 01/13/17 07:00 Sodium 141 mmol/L (136-145) 01/13/17 07:00 Potassium 4.5 mmol/L (3.5-5.1) 01/13/17 07:00 Chloride 105 mmol/L (98-107) 01/13/17 07:00 Carbon Dioxide 30 mmol/L (21-32) 01/13/17 07:00 Anion Gap 6 (8-16) L 01/13/17 07:00 BUN 14 mg/dL (7-18) D 01/13/17 07:00 Creatinine 1.0 mg/dL (0.7-1.3) 01/13/17 07:00 Creat Clearance w eGFR > 60 (>60) 01/13/17 07:00 Random Glucose 87 mg/dL (74-106) 01/13/17 07:00 Calcium 8.5 mg/dL (8.5-10.1) 01/13/17 07:00 Total Bilirubin 0.4 mg/dL (0.2-1.0) D 01/13/17 07:00 AST 7 U/L (15-37) L D 01/13/17 07:00 ALT 18 U/L (12-78) 01/13/17 07:00 Alkaline Phosphatase 65 U/L (45-117) 01/13/17 07:00 Total Protein 6.2 g/dl (6.4-8.2) L 01/13/17 07:00 Albumin 3.0 g/dl (3.4-5.0) L 01/13/17 07:00 Urine Color Yellow 01/12/17 22:21 Urine Appearance Slcloudy 01/12/17 22:21 Urine pH 5.0 (5.0-8.0) 01/12/17 22:21 Ur Specific [place] 1.025 (1.005-1.025) 01/12/17 22:21 Urine Protein Negative (NEGATIVE) 01/12/17 22:21 Urine Glucose (UA) Negative (NEGATIVE) 01/12/17 22:21 Urine Ketones Negative (NEGATIVE) 01/12/17 22:21 Urine Blood Negative (NEGATIVE) 01/12/17 22:21 Urine Nitrite Negative (NEGATIVE) 01/12/17 22:21 Urine Bilirubin Negative (NEGATIVE) 01/12/17 22:21 Urine Urobilinogen Negative mg/dL (0.2-1.0) 01/12/17 22:21 Ur Leukocyte Esterase Negative (NEGATIVE) 01/12/17 22:21 RPR Titer Nonreactive (NONREACTIVE) 01/13/17 07:00 HIV 1&2 Antibody Screen Negative 01/13/17 09:00 HIV P24 Antigen Negative 01/13/17 09:00 Assessment: 01/14/17 12:03 withdrawal symptom Plan: continue detox
[2017-01-14] MEDS: chlordiazePOXIDE HCL 25 MG CAPSULE PO PRN (12:55)
[2017-01-14] MEDS: THIAMINE HCL 100 MG TABLET (FP) PO SCH (22:32)
[2017-01-14] MEDS: chlordiazePOXIDE 5 MG CAPSULE PO SCH (22:32)
[2017-01-14] MEDS: diphenhydrAMINE HCL 50 MG CAPSULE PO PRN (22:33)
[2017-01-15] MEDS: chlordiazePOXIDE 5 MG CAPSULE PO SCH ×3 (05:36→17:24)
[2017-01-15] MEDS: METHADONE HCL 5 MG TABLET (FOR DETOX USE ONLY) PO SCH (11:09)
[2017-01-15] MEDS: NICOTINE 21 MG/24 HOURS TOPICAL PATCH TD SCH (11:09)
[2017-01-15] MEDS: PRENATAL VITAMINS W/ FOLIC ACID TABLET (FP) PO SCH (11:09)
--- NOTE | 2017-01-15 11:16 | PN ---
BHS Progress Note (SOAP) Subjective: alert,irritable,anxious,interrupted sleep Objective: 01/15/17 11:15 Vital Signs Temperature 98.8 F 01/15/17 09:59 Pulse Rate 61 01/15/17 09:59 Respiratory Rate 18 01/15/17 09:59 Blood Pressure 100/65 01/15/17 09:59 O2 Sat by Pulse Oximetry (%) Assessment: 01/15/17 11:15 withdrawal symptom Plan: continue detox
--- NOTE | 2017-01-15 13:08 | EKG ---
Test Reason : Blood Pressure : / mmHG Vent. Rate : 067 BPM Atrial Rate : 067 BPM P-R Int : 152 ms QRS Dur : 106 ms QT Int : 394 ms P-R-T Axes : 076 078 068 degrees QTc Int : 416 ms NORMAL SINUS RHYTHM NORMAL ECG WHEN COMPARED WITH ECG OF 27-NOV-2016 18:56, NO SIGNIFICANT CHANGE WAS FOUND Confirmed by AMARILYS CARROLL MD ([id number]) on 01/15/2017 1:08:30 PM Referred By: Confirmed By:AMARILYS CARROLL MD
[2017-01-15] MEDS: chlordiazePOXIDE HCL 10 MG CAPSULE PO SCH (22:13)
[2017-01-15] MEDS: THIAMINE HCL 100 MG TABLET (FP) PO SCH (22:13)
[2017-01-16] MEDS: chlordiazePOXIDE HCL 10 MG CAPSULE PO SCH ×3 (05:44→17:05)
[2017-01-16] MEDS ORDERED: METHADONE HCL 10 MG TABLET (FOR DETOX USE ONLY) PO SCH (10:00)
[2017-01-16] MEDS: PRENATAL VITAMINS W/ FOLIC ACID TABLET (FP) PO SCH (10:29)
[2017-01-16] MEDS: NICOTINE 21 MG/24 HOURS TOPICAL PATCH TD SCH (10:35)
--- NOTE | 2017-01-16 10:35 | PN ---
BHS Progress Note (SOAP) Subjective: alert,irritable,anxious,interrupted sleep Objective: 01/16/17 10:34 Vital Signs Temperature 97.7 F 01/16/17 09:51 Pulse Rate 69 01/16/17 09:51 Respiratory Rate 17 01/16/17 09:51 Blood Pressure 129/86 01/16/17 09:51 O2 Sat by Pulse Oximetry (%) Assessment: 01/16/17 10:34 withdrawal symptom Plan: continue detox,discharge in am
[2017-01-16] MEDS: THIAMINE HCL 100 MG TABLET (FP) PO SCH (22:40)
[2017-01-16] MEDS: diphenhydrAMINE HCL 50 MG CAPSULE PO PRN (22:40)
[2017-01-17] MEDS ORDERED: METHADONE HCL 5 MG TABLET (FOR DETOX USE ONLY) PO SCH (06:00)
--- NOTE | 2017-01-17 09:10 | DS ---
[facility] Detox Discharge Summary Admission Date: 01/12/17 Discharge Date: 01/17/17 - History Present History: Cannabis Dependence, Opioid Dependence Pertinent Past History: above - Physical Exam Results Vital Signs: Vital Signs Temperature 97.7 F 01/17/17 06:43 Pulse Rate 73 01/17/17 06:43 Respiratory Rate 16 01/17/17 06:43 Blood Pressure 115/69 01/17/17 06:43 O2 Sat by Pulse Oximetry (%) Pertinent Admission Physical Exam Findings: admitted in withdrawal Laboratory Tests 01/12/17 01/13/17 01/13/17 22:21 07:00 07:00 WBC 7.8 RBC 4.46 Hgb 13.5 Hct 41.5 MCV 93.0 MCH 30.3 MCHC 32.6 RDW 13.7 Plt Count 240 MPV 8.3 Sodium 141 Potassium 4.5 Chloride 105 Carbon Dioxide 30 Anion Gap 6 L BUN 14 D Creatinine 1.0 Creat Clearance w eGFR > 60 Random Glucose 87 Calcium 8.5 Total Bilirubin 0.4 D AST 7 L D ALT 18 Alkaline Phosphatase 65 Total Protein 6.2 L Albumin 3.0 L Urine Color Yellow Urine Appearance Slcloudy Urine pH 5.0 Ur Specific [place] 1.025 Urine Protein Negative Urine Glucose (UA) Negative Urine Ketones Negative Urine Blood Negative Urine Nitrite Negative Urine Bilirubin Negative Urine Urobilinogen Negative Ur Leukocyte Esterase Negative RPR Titer HIV 1&2 Antibody Screen HIV P24 Antigen 01/13/17 01/13/17 07:00 09:00 WBC RBC Hgb Hct MCV MCH MCHC RDW Plt Count MPV Sodium Potassium Chloride Carbon Dioxide Anion Gap BUN Creatinine Creat Clearance w eGFR Random Glucose Calcium Total Bilirubin AST ALT Alkaline Phosphatase Total Protein Albumin Urine Color Urine Appearance Urine pH Ur Specific [place] Urine Protein Urine Glucose (UA) Urine Ketones Urine Blood Urine Nitrite Urine Bilirubin Urine Urobilinogen Ur Leukocyte Esterase RPR Titer Nonreactive HIV 1&2 Antibody Screen Negative HIV P24 Antigen Negative Vital Signs - 24 hr 01/16/17 01/16/17 01/16/17 09:51 14:42 18:25 Temperature 97.7 F 98.9 F 97.9 F Pulse Rate 69 85 88 Respiratory 17 18 18 Rate Blood Pressure 129/86 103/67 130/71 01/16/17 01/17/17 01/17/17 23:50 00:30 03:30 Temperature 96.3 F L Pulse Rate 85 Respiratory 18 18 17 Rate Blood Pressure 134/80 01/17/17 06:43 Temperature 97.7 F Pulse Rate 73 Respiratory 16 Rate Blood Pressure 115/69 medically stable for dc dc today detox completed - Treatment Hospital Course: Detox Protocol Followed, Detoxed Safely, Responded well, Discharged Condition Good, Rehab Referral Accepted - Medication Discharge Medications: Ambulatory Orders NK [No Known Home Medication] 11/27/16 - AMA Did Patient Leave Against Medical Advice: No
[2017-01-17] MEDS: PRENATAL VITAMINS W/ FOLIC ACID TABLET (FP) PO SCH (10:52)
[2017-01-17] MEDS: NICOTINE 21 MG/24 HOURS TOPICAL PATCH TD SCH (10:53)
[2017-01-17 11:19] VITALS: BP 117/69; PULSE 86; TEMP 98.4
== END 2017-01-17 11:05 | disposition home or self-care (01) | DRG 773 ==
LOC: YASAS 13:45 → Y6N 19:37
PROVIDERS: ADMIT Internal Medicine; ATTEND Internal Medicine
PROC: HZ2ZZZZ Detoxification Services for Substance Abuse Treatment (ICD-10-PCS; principal; 2017-01-12)
DX: F11.23 Opioid dependence with withdrawal (principal); F10.230 Alcohol dependence with withdrawal, uncomplicated; F17.213 Nicotine dependence, cigarettes, with withdrawal; F34.1 Dysthymic disorder; R63.4 Abnormal weight loss; Z68.21 Body mass index [BMI] 21.0-21.9, adult
CPT/HCPCS: 36415; 80053; 81003; 85027; 86593; 87389; 90688; 93005; 93010; G0008

== ENCOUNTER 2020-11-13 11:55 | Inpatient (IN) | payer OTHER ==
[2020-11-13 13:36] VITALS: BMI 24.7
[2020-11-13] MEDS ORDERED: BISMUTH SUBSALICYLATE 524 MG/30 ML PO PRN (17:02)
[2020-11-13] MEDS ORDERED: IBUPROFEN 400 MG TABLET (FP) PO PRN (17:02)
[2020-11-13] MEDS ORDERED: ONDANSETRON *ODT* 4 MG TABLET SL PRN (17:02)
[2020-11-13] MEDS ORDERED: METHOCARBAMOL 500 MG TABLET PO PRN (17:02)
[2020-11-13] MEDS ORDERED: MAG HYDROX/AL HYDROX/SIMETH 30 ML UNIT-DOSE CUP PO PRN (17:02)
[2020-11-13] MEDS ORDERED: ACETAMINOPHEN 325 MG TABLET (FP) PO PRN ×2 (17:02)
[2020-11-13] MEDS ORDERED: cloNIDine HCL 0.1 MG TABLET PO PRN (17:02)
[2020-11-13] MEDS ORDERED: NICOTINE POLACRILEX 4 MG GUM BUC PRN (17:02)
[2020-11-13] MEDS ORDERED: MAGNESIUM CITRATE 300 ML BOTTLE PO PRN (17:02)
[2020-11-13] MEDS ORDERED: MENTHOL/PHENOL 1 EACH UD MM PRN (17:02)
[2020-11-13] MEDS ORDERED: clonazePAM 0.5 MG ODT TABLETS SL PRN (17:02)
[2020-11-13] MEDS ORDERED: MAGNESIUM HYDROX 2400MG/30ML ORAL SUSPENSION 30 ML CUP PO PRN (17:02)
[2020-11-13] MEDS ORDERED: methaDONE HCL 10 MG TABLET (FOR DETOX USE ONLY) PO ONE (17:02)
[2020-11-13] MEDS: NICOTINE 14 MG/24 HOURS TOPICAL PATCH TD SCH (18:09)
[2020-11-13] MEDS: PRENATAL VITAMINS W/ FOLIC ACID TABLET (FP) PO SCH (18:09)
[2020-11-13] MEDS: hydrOXYzine PAMOATE 25 MG CAPSULE (FP) PO SCH ×2 (18:10→22:17)
[2020-11-13] MEDS: THIAMINE HCL 100 MG TABLET (FP) PO SCH (22:17)
[2020-11-13] MEDS: MELATONIN 5 MG TABLETS PO SCH (22:17)
[2020-11-14] MEDS: hydrOXYzine PAMOATE 25 MG CAPSULE (FP) PO SCH ×5 (05:04→22:32)
[2020-11-14] MEDS ORDERED: methaDONE HCL 10 MG TABLET (FOR DETOX USE ONLY) ONE (09:08)
[2020-11-14] MEDS: NICOTINE 14 MG/24 HOURS TOPICAL PATCH TD SCH (10:18)
[2020-11-14] MEDS: PRENATAL VITAMINS W/ FOLIC ACID TABLET (FP) PO SCH (10:18)
[2020-11-14 11:04] LABS: HEMATOCRIT 41.4 % (35.4-49); HEMOGLOBIN 13.9 GM/dL (11.7-16.9); MCH 30.9 pg (25.7-33.7); MCHC 33.6 g/dl (32.0-35.9); PLATELET COUNT 266 10^3/uL (134-434); RDW 14.7 % (11.9-15.9); WHITE BLOOD COUNT 7.3 K/mm3 (4.0-10.0)
[2020-11-14 11:09] LABS: CALCIUM 8.8 mg/dL (8.5-10.1)
[2020-11-14 11:10] LABS: ALBUMIN 3.6 g/dl (3.4-5.0); BLOOD UREA NITROGEN 8.4 mg/dL (7-18)
[2020-11-14 11:11] LABS: CREATININE 0.8 mg/dL (0.55-1.3)
[2020-11-14 11:15] LABS: BILIRUBIN,TOTAL 0.4 mg/dL (0.2-1); TOT PROT 7.1 g/dl (6.4-8.2)
[2020-11-14] MEDS: THIAMINE HCL 100 MG TABLET (FP) PO SCH (22:32)
[2020-11-14] MEDS: MELATONIN 5 MG TABLETS PO SCH (22:32)
[2020-11-15] MEDS: hydrOXYzine PAMOATE 25 MG CAPSULE (FP) PO SCH ×5 (07:28→22:39)
[2020-11-15] MEDS ORDERED: methaDONE HCL 10 MG TABLET (FOR DETOX USE ONLY) PO ONE (10:00)
[2020-11-15] MEDS: PRENATAL VITAMINS W/ FOLIC ACID TABLET (FP) PO SCH (10:27)
[2020-11-15] MEDS: NICOTINE 14 MG/24 HOURS TOPICAL PATCH TD SCH (10:27)
[2020-11-15] MEDS: THIAMINE HCL 100 MG TABLET (FP) PO SCH (22:39)
[2020-11-15] MEDS: MELATONIN 5 MG TABLETS PO SCH (22:39)
[2020-11-16] MEDS: hydrOXYzine PAMOATE 25 MG CAPSULE (FP) PO SCH ×2 (06:11→09:33)
[2020-11-16] MEDS ORDERED: methaDONE HCL 10 MG TABLET (FOR DETOX USE ONLY) ONE (09:01)
[2020-11-16] MEDS: NICOTINE 14 MG/24 HOURS TOPICAL PATCH TD SCH (09:32)
[2020-11-16] MEDS: PRENATAL VITAMINS W/ FOLIC ACID TABLET (FP) PO SCH (09:35)
[2020-11-16] MEDS: MELATONIN 5 MG TABLETS PO SCH (22:43)
[2020-11-16] MEDS: THIAMINE HCL 100 MG TABLET (FP) PO SCH (22:43)
[2020-11-16] MEDS: hydrOXYzine PAMOATE 25 MG CAPSULE (FP) PO PRN (22:43)
[2020-11-17] MEDS ORDERED: methaDONE HCL 10 MG TABLET (FOR DETOX USE ONLY) PO ONE (10:00)
[2020-11-17] MEDS: PRENATAL VITAMINS W/ FOLIC ACID TABLET (FP) PO SCH (10:51)
[2020-11-17] MEDS: NICOTINE 14 MG/24 HOURS TOPICAL PATCH TD SCH (10:51)
[2020-11-17] MEDS: MELATONIN 5 MG TABLETS PO SCH (22:21)
[2020-11-17] MEDS: hydrOXYzine PAMOATE 25 MG CAPSULE (FP) PO PRN (22:21)
[2020-11-17] MEDS: THIAMINE HCL 100 MG TABLET (FP) PO SCH (22:21)
[2020-11-18 06:36] VITALS: TEMP 97.3
[2020-11-18 09:56] VITALS: BP 143/74; PULSE 104
[2020-11-18] MEDS: NICOTINE 14 MG/24 HOURS TOPICAL PATCH TD SCH (10:27)
[2020-11-18] MEDS: PRENATAL VITAMINS W/ FOLIC ACID TABLET (FP) PO SCH (10:27)
== END 2020-11-18 11:50 | disposition home or self-care (01) | DRG 773 ==
LOC: YASAS 11:55 → Y3N 16:53
PROVIDERS: ADMIT Allergy & Immunology; ATTEND Allergy & Immunology
PROC: HZ2ZZZZ Detoxification Services for Substance Abuse Treatment (ICD-10-PCS; principal; 2020-11-13)
DX: F11.23 Opioid dependence with withdrawal (principal); F10.230 Alcohol dependence with withdrawal, uncomplicated; F12.20 Cannabis dependence, uncomplicated; F17.210 Nicotine dependence, cigarettes, uncomplicated; E78.00 Pure hypercholesterolemia, unspecified; Z86.2 Personal history of diseases of the blood and blood-forming organs and certain disorders involving the immune mechanism
CPT/HCPCS: 36415; 80053; 85027; 86780; C9803; U0003; U0005